=== PATIENT | female | born 1980 | race Caucasian/White ===

== ENCOUNTER → 2017-04-20 | Outpatient (CLI) | payer OTHER ==
--- NOTE | 2017-04-26 18:49 | SLEEP ---
DATE OF STUDY: 04/20/2017 ATTENDING PHYSICIAN: Dr. Leona Thapa DATE OF STUDY: 04/20/2017 The patient is 36 years old who weighs 239 pounds with the BMI of 45. The patient's Reagan score was 6. Sleep study was performed at [facility]. During the night study, patient spent 437 minutes in bed and slept for 423 minutes with an excellent sleep efficiency of 97%. Sleep latency was 9 minutes with the REM latency of 111 minutes. Overall, sleep architecture showed normal stage 1 and stage 2 sleep. Normal slow wave and normal REM sleep. During the night study, patient had 9 obstructive apneas, no mixed or central apneas and 2 hypopneas. The patient's apnea-hypopnea index for the entire night was 2 per hour. Supine index 0 per hour and REM index of 6 per hour. EKG monitoring revealed normal sinus rhythm. Average heart rate of 79 beats per minute. No sustained arrhythmias were observed. Occasional PACs were seen. Review of nocturnal oximetry study revealed a mean oxygen saturation of 94% with lowest of 89%. No clinical significant desaturations were observed. PLMS were seen at index of 1 per hour and none caused EEG arousals. Due to low AHI, patient did not meet the split night criteria for CPAP initiation. IMPRESSION: 1. No clinically significant sleep disordered breathing. The patient's apnea-hypopnea index for the entire night was 2 per hour. 2. No clinically significant nocturnal hypoxia. 3. No clinically significant periodic limb movements of sleep. RECOMMENDATIONS: 1. The patient did not meet the split night criteria for CPAP initiation. 2. Weight loss is advised. 3. Avoid [employer] depressants. NERI CROCKER MD DR: SANTO/luh JOB#: [id number] / [id number] LEONA Oakley
== END | disposition home or self-care (01) ==
LOC: SLPLAB 18:29
PROVIDERS: ATTEND Family Medicine
DX: G47.33 Obstructive sleep apnea (adult) (pediatric) (principal)
CPT/HCPCS: 95810

== ENCOUNTER 2019-03-02 11:06 | Emergency (ER) | payer SELFPAY ==
[~2019-03-02] VITALS: Ht 154.9 cm; Wt 117.9 kg
[2019-03-02] MEDS ORDERED: IV NORMAL SALINE 1000ML BAG 1,000 ML IV ONE (11:30)
[2019-03-02] MEDS ORDERED: MORPHINE SULFATE 10 MG/ML VIAL. IV ONE ×2 (11:30→13:00)
[2019-03-02] MEDS ORDERED: KETOROLAC 30 MG/ML VIAL. IV ONE (11:30)
[2019-03-02] MEDS ORDERED: methylPREDNISolone SOD SUCC PF 125 MG/2 ML VIAL. IV ONE (11:30)
[2019-03-02] MEDS ORDERED: cefTRIAXone IV Push 1 GM VIAL. IVP ONE (11:30)
[2019-03-02] MEDS ORDERED: CLINDAMYCIN 900MG PREMIX 50 ML IV ONE (11:30)
--- NOTE | 2019-03-02 11:35 | PHYS DOC ---
Adult General Chief Complaint Chief Complaint: DENTAL PROBLEM HPI HPI Patient is a 38 year old female who presents to the ED to be evaluated for dental abscess. Patient states yesterday her left upper tooth dental bridge fell off, she states she was seen at an emergency dentist who informed her she has dental decay and dental abscess and started on amoxicillin 500 mg and ibuprofen. Patient states this morning she woke up and she has increased swelling to the left facial area. She states the dentist would like the infection to be cleared up before he can work on the tooth. Patient denies any fever. Denies any nausea or vomiting. Denies any trismus. Review of Systems Review of Systems Constitutional: Denies fever or chills [] Eyes: Denies change in visual acuity, redness, or eye pain [] HENT: Reports dental abscess. Denies nasal congestion or sore throat [] Respiratory: Denies cough or shortness of breath [] Cardiovascular: No additional information not addressed in HPI [] GI: Denies abdominal pain, nausea, vomiting, bloody stools or diarrhea [] : Denies dysuria or hematuria [] Musculoskeletal: Denies back pain or joint pain [] Integument: Denies rash or skin lesions [] Neurologic: Denies headache, focal weakness or sensory changes [] All other systems were reviewed and found to be within normal limits, except as documented in this note. Current Medications Current Medications Current Medications Medications (Trade) Dose Ordered Sig/Eldon Start Time Stop Time Status Last Admin Dose Admin Ceftriaxone Sodium (Rocephin) 1 gm 1X ONCE 03/02/19 11:30 03/02/19 11:31 DC 03/02/19 11:58 1 GM Clindamycin Phosphate 50 ml @ 100 mls/hr 1X ONCE 03/02/19 11:30 03/02/19 11:59 DC 03/02/19 11:58 100 MLS/HR Ketorolac Tromethamine (Toradol 30mg Vial) 30 mg 1X ONCE 03/02/19 11:30 03/02/19 11:31 DC 03/02/19 11:39 30 MG Methylprednisolone Sodium Succinate (SOLU-Medrol 125MG VIAL) 125 mg 1X ONCE 03/02/19 11:30 03/02/19 11:31 DC 03/02/19 11:38 125 MG Morphine Sulfate (Morphine Sulfate) 5 mg 1X ONCE 03/02/19 13:00 03/02/19 13:01 DC Sodium Chloride 1,000 ml @ 1,000 mls/hr 1X ONCE 03/02/19 11:30 03/02/19 12:29 DC 03/02/19 11:38 1,000 MLS/HR Allergies Allergies Allergies Coded Allergies Type Severity Reaction Last Updated Verified No Known Drug Allergies 03/02/19 No Physical Exam Physical Exam Constitutional: Well developed, well nourished, no acute distress, non-toxic appearance. [] HENT: Normocephalic, atraumatic, bilateral external ears normal, oropharynx moist, no oral exudates, nose normal. [] There is moderate swelling on the left exterior cheek including the left lower eyelid. Airway is open. Missing left wisdom teeth, there is a tiny piece of the left upper tooth molar that appears decayed, There is no fluctuance to the left upper gum. Eyes: PERRLA, EOMI, conjunctiva normal, no discharge. [] Neck: Normal range of motion, no tenderness, supple, no stridor. [] Cardiovascular:Heart rate regular rhythm, no murmur [] Lungs & Thorax: Bilateral breath sounds clear to auscultation [] Abdomen: Bowel sounds normal, soft, no tenderness, no masses, no pulsatile masses. [] Skin: Warm, dry, no erythema, no rash. [] Back: No tenderness, no CVA tenderness. [] Extremities: No tenderness, no cyanosis, no clubbing, ROM intact, no edema. [] Neurologic: Alert and oriented X 3, normal motor function, normal sensory function, no focal deficits noted. [] Psychologic: Affect normal, judgement normal, mood normal. [] Current Patient Data Vital Signs Vital Signs Date Time Temp Pulse Resp B/P (MAP) Pulse Ox O2 Delivery O2 Flow Rate FiO2 03/02/19 11:10 98.6 77 18 162/97 (118) 96 Room Air 98.6 Lab Values Laboratory Tests Test 03/02/19 11:45 White Blood Count 9.9 x10^3/uL (4.0-11.0) Red Blood Count 4.45 x10^6/uL (3.50-5.40) Hemoglobin 13.4 g/dL (12.0-15.5) Hematocrit 38.6 % (36.0-47.0) Mean Corpuscular Volume 87 fL (79-100) Mean Corpuscular Hemoglobin 30 pg (25-35) Mean Corpuscular Hemoglobin Concent 35 g/dL (31-37) Red Cell Distribution Width 12.6 % (11.5-14.5) Platelet Count 186 x10^3/uL (140-400) Neutrophils (%) (Auto) 78 % (31-73) H Lymphocytes (%) (Auto) 13 % (24-48) L Monocytes (%) (Auto) 10 % (0-9) H Eosinophils (%) (Auto) 0 % (0-3) Basophils (%) (Auto) 0 % (0-3) Neutrophils # (Auto) 7.7 x10^3/uL (1.8-7.7) Lymphocytes # (Auto) 1.2 x10^3/uL (1.0-4.8) Monocytes # (Auto) 0.9 x10^3/uL (0.0-1.1) Eosinophils # (Auto) 0.0 x10^3/uL (0.0-0.7) Basophils # (Auto) 0.0 x10^3/uL (0.0-0.2) Sodium Level 140 mmol/L (136-145) Potassium Level 3.7 mmol/L (3.5-5.1) Chloride Level 105 mmol/L (98-107) Carbon Dioxide Level 23 mmol/L (21-32) Anion Gap 12 (6-14) Blood Urea Nitrogen 6 mg/dL (7-20) L Creatinine 0.7 mg/dL (0.6-1.0) Estimated GFR (Cockcroft-Gault) 93.6 BUN/Creatinine Ratio 9 (6-20) Glucose Level 105 mg/dL (70-99) H Calcium Level 8.6 mg/dL (8.5-10.1) Total Bilirubin 0.8 mg/dL (0.2-1.0) Aspartate Amino Transferase (AST) 14 U/L (15-37) L Alanine Aminotransferase (ALT) 20 U/L (14-59) Alkaline Phosphatase 87 U/L (46-116) Total Protein 6.9 g/dL (6.4-8.2) Albumin 3.4 g/dL (3.4-5.0) Albumin/Globulin Ratio 1.0 (1.0-1.7) Laboratory Tests 03/02/19 11:45 Laboratory Tests 03/02/19 11:45 EKG EKG [] Radiology/Procedures Radiology/Procedures [] Course & Med Decision Making Course & Med Decision Making Pertinent Labs and Imaging studies reviewed. (See chart for details) This is a 38-year-old female patient presenting to the ED today with a dental abscess, patient was seen by the dentist yesterday, started on amoxicillin 500 mg and ibuprofen. Today she woke up in her swelling had gotten worse. CBC with a normal WBC, CMP with no acute findings. Patient was given Rocephin as well as clindamycin IV. Also given Decadron. Swelling has gone down. We'll discharge on clindamycin. Follow-up with her dentist in the course of next week. Dragon Disclaimer Dragon Disclaimer This electronic medical record was generated, in whole or in part, using a voice recognition dictation system. Departure Departure Impression: Primary Impression: Abscess, dental Disposition: 01 HOME, SELF-CARE Condition: STABLE Referrals: OG DRAKE APRN (PCP) Follow-up with your dentist next week Patient Instructions: Dental Abscess Additional Instructions: You have a dental abscess. We put you on medications, take them as prescribed stop taking amoxicillin and start taking Clindamycin. Please follow-up with your dentist next week. Scripts Prednisone (PREDNISONE) 50 Mg Tablet 1 TAB PO DAILY, #5 TAB Prov: SHEELA MCCALLUM APRN 03/02/19 Hydrocodone/Apap 5-325 (NORCO 5-325 TABLET) 1 Each Tablet 1 TAB PO Q6-8HRS PRN for PAIN, #20 TAB Prov: SHEELA MCCALLUM APRN 03/02/19 Clindamycin Hcl (CLINDAMYCIN HCL) 150 Mg Capsule 3 CAP PO TID, #90 CAP Prov: SHEELA MCCALLUM APRN 03/02/19 SHEELA MCCALLUM APRN Mar 02, 2019 11:35
[2019-03-02 12:05] LABS: BASO % 0 % (0-3); EOS % 0 % (0-3); HEMATOCRIT 38.6 % (36.0-47.0); HEMOGLOBIN 13.4 g/dL (12.0-15.5); LYMPH # 1.2 x10^3/uL (1.0-4.8); LYMPH % 13 % (24-48); MEAN CORPUSCULAR HEMOGLOBIN 30 pg (25-35); MEAN CORPUSCULAR HGB CONC 35 g/dL (31-37); MEAN CORPUSCULAR VOLUME 87 fL (79-100); MONO # 0.9 x10^3/uL (0.0-1.1); MONO % 10 % (0-9); NEUT # 7.7 x10^3/uL (1.8-7.7); NEUT % 78 % (31-73); PLATELET COUNT 186 x10^3/uL (140-400); RED BLOOD COUNT 4.45 x10^6/uL (3.50-5.40); RED CELL DISTRIBUTION WIDTH 12.6 % (11.5-14.5); WHITE BLOOD COUNT 9.9 x10^3/uL (4.0-11.0)
[2019-03-02 12:10] LABS: CALCIUM 8.6 mg/dL (8.5-10.1); CREATININE 0.7 mg/dL (0.6-1.0); GFR 93.6; POTASSIUM 3.7 mmol/L (3.5-5.1)
[2019-03-02 12:16] LABS: ALBUMIN 3.4 g/dL (3.4-5.0); TOTAL BILIRUBIN 0.8 mg/dL (0.2-1.0); TOTAL PROTEIN 6.9 g/dL (6.4-8.2)
[2019-03-02] MEDS ORDERED: HYDR-3164 PO (13:12)
[2019-03-02] MEDS ORDERED: CLIN150C14 PO (13:12)
[2019-03-02] MEDS ORDERED: PRED50TA PO (13:12)
[2019-03-02 13:36] VITALS: BP 127/76
== END 2019-03-02 13:36 | disposition home or self-care (01) ==
LOC: ER 11:06
DX: K04.7 Periapical abscess without sinus (principal)
CPT/HCPCS: 36415; 80053; 85025; 96365; 96366; 96375; 96376; 99284; J0696; J1885; J2270; J2930; J3490; J7030